=== PATIENT | female | born 1990 | race Caucasian/White ===

== ENCOUNTER 2023-11-19 10:58 | Day surgery (SDC) | payer OTHER ==
[2023-11-19 12:56] VITALS: BMI 39.5
[2023-11-19] MEDS ORDERED: BUPIVACAINE HCL/PF 0.5% (5 MG/ML) 30 ML VIAL IJ ONE (14:52)
[2023-11-19] MEDS ORDERED: MIDAZOLAM HCL 2 MG/2 ML SINGLE DOSE VIAL ONE (14:52)
[2023-11-19] MEDS ORDERED: BUPIVACAINE LIPOSOME/PF (EXPAREL) 266 MG/20 ML VIAL ONE (14:53)
[2023-11-19] MEDS ORDERED: FENTANYL CITRATE/PF 50 MCG/ML VIAL ONE (14:53)
[2023-11-19] MEDS ORDERED: DEXAMETHASONE SOD PHOSPHATE 10 MG/1 ML VIAL ONE (14:53)
[2023-11-19] MEDS ORDERED: PROPOFOL 20 ML ONE (15:20)
[2023-11-19] MEDS ORDERED: oxyCODONE HCL 5 MG TABLET PO PRN ×2 (15:23)
[2023-11-19] MEDS ORDERED: TRANEXAMIC ACID 1000 MG/10 ML VIAL ONE (15:28)
[2023-11-19] MEDS ORDERED: ceFAZolin SODIUM 1 GM VIAL ONE ×2 (15:28)
[2023-11-19] MEDS ORDERED: LACTATED RINGERS SOLUTION 1,000 ML IV SCH (15:30)
[2023-11-19] MEDS ORDERED: ACETAMINOPHEN INJECTION 100 ML IVPB ONE (15:45)
[2023-11-19] MEDS ORDERED: PROMETHAZINE HCL 25 MG/1 ML VIAL IVPB ONE (18:00)
[2023-11-19] MEDS ORDERED: PROMETHAZINE HCL 25 MG/1 ML VIAL ONE (18:03)
[2023-11-19] MEDS: PROMETHAZINE HCL 25 MG/1 ML VIAL IVPB ONE (18:05)
[2023-11-19 18:29] VITALS: TEMP 97
[2023-11-19 19:02] VITALS: BP 115/67; PULSE 65; RESP 16
== END 2023-11-19 19:03 | disposition home or self-care (01) ==
LOC: FASU 10:58
PROVIDERS: ATTEND Orthopaedic Surgery Sports Medicine
PROC: 0QS704Z Reposition Left Upper Femur with Internal Fixation Device, Open Approach (ICD-10-PCS; principal; 2023-11-19 15:54)
DX: S82.892A Other fracture of left lower leg, initial encounter for closed fracture (principal); S93.432A Sprain of tibiofibular ligament of left ankle, initial encounter; X58.XXXA Exposure to other specified factors, initial encounter; Y93.9 Activity, unspecified; Y92.9 Unspecified place or not applicable
CPT/HCPCS: 27792; 27829; C1713; 73610-TC-LT-FY; 73630-TC-LT; 81025; 94760; J0131; J1100